=== PATIENT | male | born 1940 | race Two or more races ===

== ENCOUNTER 2021-04-29 22:46 | Emergency (ER) | payer MEDICARE, OTHER ==
[~2021-04-29] VITALS: Ht 162.6 cm; Wt 71.2 kg
--- NOTE | 2021-04-29 22:58 | NUR ---
PT BIB [facility] FROM HOME, FAMILY ACCIDENTALLY GAVE 100MG SEROQUEL INSTEAD OF 50 MG. PT A/O X3, NO SOB OR LABORED BREATHING, AFEBRILE. RESPONSIVE TO VERBAL AND TACTILE STIMULI. CLEAR SPEECH, COMPLETE SENTENCES. DR. MARTIN AT BEDSIDE, MSE IN PROGRESS.
--- NOTE | 2021-04-29 23:07 | NUR ---
LAB AT BEDSIDE.
[2021-04-29] MEDS ORDERED: FLUO20CA42 PO (23:11)
[2021-04-29] MEDS ORDERED: CHOL10005 PO (23:11)
[2021-04-29] MEDS ORDERED: ASPI81TA31 PO (23:11)
[2021-04-29] MEDS ORDERED: LEVO50TA8 PO (23:11)
[2021-04-29] MEDS ORDERED: QUET50TA PO (23:11)
[2021-04-29] MEDS ORDERED: CLOP75TA33 PO (23:11)
[2021-04-29] MEDS ORDERED: BENA20TA9 PO (23:11)
[2021-04-29] MEDS ORDERED: ATOR80TA PO (23:11)
[2021-04-29] MEDS ORDERED: TRAZ-182 PO (23:11)
[2021-04-29] MEDS ORDERED: MEMA10TA PO (23:11)
[2021-04-29] MEDS ORDERED: SITA50TA PO (23:11)
--- NOTE | 2021-04-29 23:18 | NUR ---
XRAY AT BEDSIDE.
[2021-04-29 23:22] LABS: HEMATOCRIT 36.4 % (36.7-47.1); MEAN CORPUSCULAR HEMOGLOBIN 29.5 uug (23.8-33.4); MEAN CORPUSCULAR VOLUME 89.2 fL (73.0-96.2); PLATELET COUNT (AUTO) 242 K/uL (152-348)
[2021-04-29 23:27] LABS: CREATININE 1.2 mg/dL (0.6-1.3); POTASSIUM 3.9 mmol/L (3.5-5.1)
[2021-04-29] MEDS ORDERED: INDOMETHACIN 25 MG CAPSULE PO ONE (23:30)
[2021-04-29] MEDS ORDERED: ONDANSETRON ODT 4 MG TAB.RAPDIS SL ONE (23:30)
[2021-04-29] MEDS ORDERED: HYDROCODONE/APAP 5-325MG TABLET PO ONE (23:30)
[2021-04-29 23:33] LABS: BILIRUBIN,DIRECT 0.1 mg/dL (0.0-0.2); BILIRUBIN,TOTAL 0.3 mg/dL (0.2-1.0); TOTAL PROTEIN, SERUM 7.5 g/dL (6.4-8.2)
[2021-04-29] MEDS ORDERED: HYDROCODONE/APAP 5-325MG TABLET ONE (23:40)
[2021-04-29] MEDS ORDERED: INDOMETHACIN 25 MG CAPSULE ONE (23:40)
[2021-04-29] MEDS ORDERED: ONDANSETRON ODT 4 MG TAB.RAPDIS ONE (23:40)
[2021-04-30] MEDS ORDERED: HYDR-4209 PO (00:28)
[2021-04-30] MEDS ORDERED: IBUP-1955 PO (00:28)
--- NOTE | 2021-04-30 00:40 | NUR ---
Patient discharged to home in stable condition. No changes in LOC. Denies pain/discomfort upon discharge. No N/V/D. Written and verbal after care instructions given. Patient verbalizes understanding of instructions. Stressed follow up or return to ER for worsening s/s. Steady gait, accompanied by son.
[2021-04-30 00:58] VITALS: BP 130/70
== END 2021-04-30 00:45 | disposition home or self-care (01) ==
LOC: ER 22:46
DX: M11.232 Other chondrocalcinosis, left wrist (principal); F03.90 Unspecified dementia, unspecified severity, without behavioral disturbance, psychotic disturbance, mood disturbance, and anxiety; Z79.02 Long term (current) use of antithrombotics/antiplatelets; Z79.899 Other long term (current) drug therapy; I45.10 Unspecified right bundle-branch block
CPT/HCPCS: 36415; 70030-TC; 71045; 73060; 73090; 73130; 83690; 85025; 93005; A4663; Q0162